=== PATIENT | male | born 1975 | race Caucasian/White ===

== ENCOUNTER → 2020-04-03 | Outpatient (CLI) | payer BC, OTHER | LOC: ECHO 01-11 10:00 → NM 01-11 10:00 | DX: R68.89 Other general symptoms and signs (principal); R07.9 Chest pain, unspecified; I08.0 Rheumatic disorders of both mitral and aortic valves; I25.9 Chronic ischemic heart disease, unspecified | CPT/HCPCS: 78452; 93017; A9502; J2785 ==

== ENCOUNTER → 2020-04-04 | Outpatient (CLI) | payer OTHER | LOC: NM 01-12 13:00 | DX: R68.89 Other general symptoms and signs (principal); R94.31 Abnormal electrocardiogram [ECG] [EKG]; R94.39 Abnormal result of other cardiovascular function study ==